=== PATIENT | female | born 1995 | race Two or more races ===

== ENCOUNTER 2020-08-25 21:27 | Emergency (ER) | payer OTHER ==
[~2020-08-25] VITALS: Ht 162.6 cm; Wt 86.2 kg
[2020-08-26] MEDS ORDERED: DICLOFENAC SODI75 MG PO (00:38)
== END 2020-08-26 00:45 | disposition home or self-care (01) ==
LOC: ER 21:27
DX: S60.222A Contusion of left hand, initial encounter (principal); W18.09XA Striking against other object with subsequent fall, initial encounter; Y93.01 Activity, walking, marching and hiking; Y92.821 Forest as the place of occurrence of the external cause; Y99.8 Other external cause status